=== PATIENT | male | born 1975 | race Caucasian/White ===

== ENCOUNTER 2018-09-02 18:55 | Emergency (ER) | payer OTHER ==
[~2018-09-02] VITALS: Ht 180.3 cm; Wt 80.9 kg
[2018-09-02 19:00] VITALS: Ht 180.3 cm; Wt 80.9 kg
[2018-09-02] MEDS ORDERED: SOD CHLORIDE 0.9% 1,000 ML IV STA ×2 (19:31→21:23)
[2018-09-02] MEDS ORDERED: METF-849 PO (23:13)
--- NOTE | 2018-09-02 23:34 | ERD ---
ER Documentation Chief Complaint Chief Complaint pt sent from urgent care for hyperglycemia, FSBA 372 in triage HPI 43-year-old male presenting with complaints of hyperglycemia. Patient states he had generalized abdominal pain with some vomiting. He denies any chest pain or shortness of breath. He was seen at urgent care earlier today and diagnosed with hyperglycemia. He has no change in urination or bowel movement. Medical history denies. NKDA. Surgical history denies. Social history denies ROS All systems reviewed and are negative except as per history of present illness. Medications Home Meds Active Scripts Metformin* (Glucophage*) 500 Mg Tab, 500 MG PO DAILY, #20 TAB Prov:ASHLEY MALIN PA-C 09/02/18 Allergies Allergies: Coded Allergies: Penicillins (Verified Allergy, Unknown, 09/02/18) PMhx/Soc Medical and Surgical Hx: pt denies Surgical Hx History of Surgery: No Anesthesia Reaction: No Hx Neurological Disorder: No Hx Respiratory Disorders: No Hx Cardiac Disorders: No Hx Psychiatric Problems: Yes (ANXIETY) Hx Miscellaneous Medical Probl: No Hx Alcohol Use: Yes Hx Substance Use: No Hx Tobacco Use: Yes Smoking Status: Former smoker FmHx Family History: No diabetes, No coronary disease, No other Physical Exam Vitals Vital Signs Date Temp Pulse Resp B/P (MAP) Pulse Ox O2 O2 Flow FiO2 Time Delivery Rate 09/02/18 67 16 125/77 98 Room Air 21:07 (93) 09/02/18 97.8 103 16 134/94 98 19:00 (107) Physical Exam GENERAL: The patient is well-appearing, well-nourished, in no acute distress CHEST: Clear to auscultation bilaterally. There are no rales, wheezes or rhonchi. HEART: Regular rate and rhythm. No murmurs, clicks, rubs or gallops. ABDOMEN:Soft, nontender and nondistended. Good bowel sounds. No rebound or guarding. No gross peritonitis. No gross organomegaly or masses. No Watkins sign or McBurney point tenderness. BACK: No midline or flank tenderness. Result Diagram: 09/02/18193709/02/181937 Results 24 hrs Laboratory Tests Test 09/02/18 19:00 09/02/18 19:38 09/02/18 21:05 09/02/18 21:41 Bedside Glucose 372 mg/dL 317 mg/dL 291 mg/dL White Blood Count 6.6 10^3/ul Red Blood Count 5.69 10^6/ul Hemoglobin 16.4 g/dl Hematocrit 48.4 % Mean Corpuscular 85.1 fl Volume Mean Corpuscular 28.8 pg Hemoglobin Mean Corpuscular 33.9 g/dl Hemoglobin Concent Red Cell 12.1 % Distribution Width Platelet Count 176 10^3/UL Mean Platelet 11.6 fl Volume Immature 0.300 % Granulocytes % Neutrophils % 77.2 % Lymphocytes % 15.8 % Monocytes % 5.4 % Eosinophils % 0.5 % Basophils % 0.8 % Nucleated Red 0.0 /100WBC Blood Cells % Immature 0.020 10^3/ul Granulocytes # Neutrophils # 5.1 10^3/ul Lymphocytes # 1.1 10^3/ul Monocytes # 0.4 10^3/ul Eosinophils # 0.0 10^3/ul Basophils # 0.1 10^3/ul Nucleated Red 0.0 10^3/ul Blood Cells # Urine Color YELLOW Urine Clarity CLEAR Urine pH 6.0 Urine Specific 1.041 [place] Urine Ketones 1+ mg/dL Urine Nitrite NEGATIVE mg/dL Urine Bilirubin NEGATIVE mg/dL Urine Urobilinogen NEGATIVE mg/dL Urine Leukocyte NEGATIVE Blue/ul Esterase Urine Hemoglobin NEGATIVE mg/dL Urine Glucose 3+ mg/dL Urine Total NEGATIVE mg/dl Protein Sodium Level 137 mmol/L Potassium Level 3.7 mmol/L Chloride Level 99 mmol/L Carbon Dioxide 26 mmol/L Level Anion Gap 12 Blood Urea 10 mg/dl Nitrogen Creatinine 0.74 mg/dl Est Glomerular > 60 mL/min Filtrat Rate mL/min Glucose Level 385 mg/dl Calcium Level 8.9 mg/dl Total Bilirubin 0.9 mg/dl Direct Bilirubin 0.00 mg/dl Indirect Bilirubin 0.9 mg/dl Aspartate Amino 40 IU/L Transf (AST/SGOT) Alanine 50 IU/L Aminotransferase ( ALT/SGPT) Alkaline 103 IU/L Phosphatase Total Protein 7.5 g/dl Albumin 4.3 g/dl Globulin 3.20 g/dl Albumin/Globulin 1.34 Ratio Lipase 54 U/L Test 09/02/18 22:53 Bedside Glucose 256 mg/dL Current Medications Medications Dose Sig/Sheri Start Time Status Last (Trade) Ordered Route PRN Stop Time Admin Dose Reason Admin Sodium 1,000 ml @ Q1H STAT 09/02/18 DC 09/02/18 Chloride 1,000 mls/hr IV 19:31 19:48 09/02/18 20:30 Sodium 1,000 ml @ Q1H STAT 09/02/18 DC 09/02/18 Chloride 1,000 mls/hr IV 21:23 21:25 09/02/18 22:22 Procedures/MDM ER course: 2 L normal saline given given in ED. Patient's sugar dropped to 217. MDM: 43-year-old male presenting with abdominal pain. He abdominal exam is non- concerning. I have low suspicion for acute abdominal emergency. Patient may be having abdominal irritation secondary to hyperglycemia. There is are lowered while in the emergency room and he is recommended to follow-up with primary care. I will discharge with diabetic medication but recommended to obtain further testing at the primary doctor's office. I have low suspicion for cardiac or pulmonary emergency. Patient is discharged with strict ER precautions. All questions answered at discharge Departure Diagnosis: Primary Impression: Hyperglycemia Condition: Stable Patient Instructions: Hyperglycemia (High Blood Sugar) Referrals: PENDING SALE TO [facility] YOU HAVE RECEIVED A MEDICAL SCREENING EXAM AND THE RESULTS INDICATE THAT YOU DO NOT HAVE A CONDITION THAT REQUIRES URGENT TREATMENT IN THE EMERGENCY DEPARTMENT. FURTHER EVALUATION AND TREATMENT OF YOUR CONDITION CAN WAIT UNTIL YOU ARE SEEN IN YOUR DOCTORS OFFICE WITHIN THE NEXT 1-2 DAYS. IT IS YOUR RESPONSIBILITY TO MAKE AN APPOINTMENT FOR FOLOW-UP CARE. IF YOU HAVE A PRIMARY DOCTOR --you should call your primary doctor and schedule an appointment IF YOU DO NOT HAVE A PRIMARY DOCTOR YOU CAN CALL OUR PHYSICIAN REFERRAL HOTLINE AT IF YOU CAN NOT AFFORD TO SEE A PHYSICIAN YOU CAN CHOSE FROM THE FOLLOWING PENDING SALE TO [facility] [address] [facility] [address] [facility] [address] [facility] [address] [facility] [address] [facility] [facility]. [address] Additional Instructions: FOLLOW UP WITH YOUR PRIMARY CARE PHYSICIAN TOMORROW.Return to this facility if you are not improving as expected. ASHLEY MALIN PA-C Sep 02, 2018 23:34
[2018-09-02 23:37] VITALS: BP 136/90; PULSE 74; RESP 16
== END 2018-09-02 23:37 | disposition home or self-care (01) ==
LOC: FTE 18:55
DX: R73.9 Hyperglycemia, unspecified (principal); Z79.84 Long term (current) use of oral hypoglycemic drugs
CPT/HCPCS: 36415; 80053; 81003; 82962; 83690; 85025; 99284; J7030